=== PATIENT | female | born 1950 | race Caucasian/White ===

== ENCOUNTER → 2020-04-19 | Outpatient (CLI) | payer MEDICARE, OTHER ==
--- NOTE | 2020-04-22 11:43 | RAD ---
EXAM DESCRIPTION: Pelvis CLINICAL HISTORY: pain in left hip COMPARISON: None. TECHNIQUE: AP pelvis FINDINGS: Moderate degenerative changes are observed in the left hip. The joint space is obliterated. Acetabular and femoral head osteophyte formation is observed. Some subchondral cyst formation is observed in the acetabulum. Mild loss of joint space is also observed on the right. Phleboliths are observed in the pelvis. No fracturing is detected. IMPRESSION: Severe degenerative changes are observed in the left hip. Electronically signed by: Ricky Beasley MD 04/22/2020 11:41 AM [facility]
--- NOTE | 2020-04-22 11:43 | RAD ---
EXAM DESCRIPTION: Knee,Left Complete CLINICAL HISTORY: 70 years Female, pain in left knee COMPARISON: None. Findings: Four views/radiographs Location: Left knee No acute fracture or dislocation. Mild left knee osteoarthritis. No significant joint effusion. Patella marlon. IMPRESSION: No evidence of acute process in the left knee. Electronically signed by: Conrado Crowe MD 04/22/2020 11:42 AM [facility]
== END ==
LOC: RAD 08:57
PROVIDERS: ATTEND Orthopaedic Surgery
DX: M16.12 Unilateral primary osteoarthritis, left hip (principal); M25.562 Pain in left knee